=== PATIENT | male | born 1975 | race African-American/Black ===

== ENCOUNTER 2020-12-27 11:29 | Emergency (ER) | payer MEDICAID ==
[~2020-12-27] VITALS: Ht 177.8 cm; Wt 77.0 kg
[~2020-12-27 11:29] MED LIST: HYDR-4346 PO; IBUP-2029 MT
[2020-12-27 13:11] VITALS: BP 150/95
== END 2020-12-27 13:11 | disposition home or self-care (01) ==
LOC: ER 11:29
DX: S01.01XD Laceration without foreign body of scalp, subsequent encounter (principal); X58.XXXD Exposure to other specified factors, subsequent encounter
CPT/HCPCS: 99281